=== PATIENT | male | born 1990 | race Caucasian/White ===

== ENCOUNTER 2021-10-10 19:17 | Emergency (ER) | payer BC, SELFPAY ==
[2021-10-10 19:30] VITALS: BP 131/76; PULSE 91; RESP 18; TEMP 36.9; O2SAT 98; BMI 39.7
--- NOTE | 2021-10-10 19:48 | EXP.UTC ---
Discharge Plan Disposition Patient Disposition: Home, Self-Care Condition: Good Prescriptions Prescriptions: New methylprednisolone [Medrol (Lorenzo)] 4 mg tablets,dose pack 4 mg PO DIRECTED 6 Days Qty: 6 0RF Rx Instructions: 4 mg orally ;Medrol dose taper lorenzo synylnxhoxvjvpt-ydnlqnvqr-TE [Bromfed DM] 2-30-10 mg/5 mL syrup 10 ml PO Q6H PRN (Reason: cold symptoms) Qty: 200 0RF doxycycline monohydrate 100 mg capsule 100 mg PO BID 10 Days Qty: 20 0RF No Action citalopram 20 mg tablet 10 mg PO DAILY buspirone 7.5 mg tablet 7.5 mg PO DAILY Referrals Follow up/Referrals: Provider,Referral, MD [Primary Care Provider] - See instructions Clinical Impressions Clinical Impression: Upper respiratory tract infection Instructions Patient Instructions: DI for Acute Bronchitis Discharge ED Provider: Judie Villegas [facility] [place] HPI General Stated complaint: sore throat,ELLIS,runny nose,waqas Mode of Arrival: Ambulatory Source of Information: Patient Limitations: No Limitations Time Seen by Provider: 10/10/21 19:39 Description of Symptoms (Recalled from Triage Doc. by RN): PATIENT C/O SINUS DRAINAGE AND SORE THROAT X 1 WEEK HEENT Symptoms (Recalled from RN notes): Yes Resp Symptoms (Recalled from RN notes): No Skin Symptoms (Recalled from RN notes): No MS Symptoms (Recalled from RN notes): No Functional Status (Recalled from RN notes): WNL History of Present Illness Provider Complaint: Pt states that for the last week and a half he has dealt with sinus drainage, cough and since yesterday a sore throat. He relates that he has not taken anything for his symptoms. He reports green sinus drainage and coughing up brownish tinged phlegm where he smokes. Related Data Home Medications Medication Instructions Recorded Confirmed buspirone 7.5 mg tablet 7.5 mg PO DAILY Anxiety 10/10/21 10/10/21 citalopram 20 mg tablet 10 mg PO DAILY Anxiety 10/10/21 10/10/21 Previous Rx's Medication Instructions Recorded uulmlhyoqrocvvl-tupcbsubsowajgx-ZB 10 ml PO Q6H PRN cold symptoms 10/10/21 2 mg-30 mg-10 mg/5 mL oral syrup #200 mL (Bromfed DM) doxycycline monohydrate 100 mg 100 mg PO BID 10 days #20 caps 10/10/21 capsule methylprednisolone 4 mg tablets in 4 mg PO DIRECTED 6 days #6 tabs 10/10/21 a dose pack (Medrol (Lorenzo)) Allergies Allergy/AdvReac Type Severity Reaction Status Date / Time Penicillins Allergy Verified 10/10/21 19:39 Worker's Comp Is this a Worker's Comp case?: No PFSH PFSH Medical History (Updated 10/10/21 @ 20:00 by Judie Villegas APRN) Anxiety Asthma Depression Surgical History (Updated 10/10/21 @ 19:38 by Sherlyn Murphy RN) History of hernia repair Social History (Updated 10/10/21 @ 19:38 by Sherlyn Murphy RN) Smoking Status: Current every day smoker alcohol intake: current current occupational status: other Travel in the last 8 weeks: None ROS Obtained: Yes All systems reviewed & no additional complaints except as documented Constitutional Constitutional: Reports system reviewed and no additional complaints, except as documented and Reports malaise ENT Ears, Nose, Mouth, and Throat: Reports nasal congestion, Reports nasal discharge, Reports post nasal drip, Reports sinus pressure and Reports sore throat Cardiovascular Cardiovascular: Reports system reviewed and no additional complaints, except as documented and Reports as per HPI Respiratory Respiratory: Reports cough and Reports cough with sputum production Gastrointestinal Gastrointestingal: Reports system reviewed and no additional complaints, except as documented Musculoskeletal Musculoskeletal: Reports system reviewed and no additional complaints, except as documented Integumentary/Breasts Skin/Breast: Reports system reviewed and no additional complaints, except as documented Endocrine Endocrine: Reports system reviewed and no additional complaints, except as documented P
[2021-10-10 20:02] VITALS: BP 131/76; PULSE 91; RESP 18; TEMP 36.9; O2SAT 98
== END 2021-10-10 20:05 | disposition home or self-care (01) ==
PROVIDERS: Emergency Provider Nurse Practitioner Family
DX: J06.9 Acute upper respiratory infection, unspecified (principal)
CPT/HCPCS: 99212; G0463

== ENCOUNTER 2021-12-22 11:13 | Emergency (ER) | payer BC, SELFPAY ==
[2021-12-22 11:19] VITALS: BP 158/98; PULSE 84; RESP 16; TEMP 37; O2SAT 98; BMI 37.3
[2021-12-22 11:50] VITALS: BP 0/0; PULSE 0; RESP 0; TEMP -17.7; TEMP 0
== END 2021-12-22 11:51 | disposition left against medical advice (07) ==
PROVIDERS: Emergency Provider Nurse Practitioner Family
DX: J06.9 Acute upper respiratory infection, unspecified (principal)
CPT/HCPCS: 99212; G0463

== ENCOUNTER 2023-04-27 13:22 | Observation (INO) | payer BC, SELFPAY ==
[2023-04-27 13:25] VITALS: BP 141/79; PULSE 71; RESP 22; TEMP 36.6; O2SAT 98; BMI 40.4
[2023-04-27] MEDS: METHOCARBAMOL 500MG TABLET 1500 MG PO (13:46)
[2023-04-27] MEDS: DEXAMETHASONE 4MG TABLET 10 MG PO (13:46)
[2023-04-27] MEDS: LIDOCAINE 5% TRANSDERMAL PATCH 1 EACH TP (13:46)
[2023-04-27] MEDS: KETOROLAC 30MG/ML VIAL 15 MG IM (13:50)
[2023-04-27 14:00] VITALS: BP 92/59; PULSE 62; O2SAT 96
--- NOTE | 2023-04-27 14:06 | HMH.EDGENADL ---
Discharge Plan Disposition Patient Disposition: Home, Self-Care Prescriptions Prescriptions: New prednisone 20 mg tablet 40 mg PO DAILY 5 Days Qty: 10 0RF methocarbamol 750 mg tablet 1,500 mg PO TID 5 Days Qty: 30 0RF lidocaine 5 % adhesive patch,medicated 1 patch topical DAILY Qty: 15 0RF Rx Instructions: leave on most painful area for up to 12 hrs No Action citalopram 20 mg tablet 10 mg PO DAILY buspirone 7.5 mg tablet 7.5 mg PO DAILY methylprednisolone [Medrol (Lorenzo)] 4 mg tablets,dose pack 4 mg PO DIRECTED 6 Days Qty: 6 0RF Rx Instructions: 4 mg orally ;Medrol dose taper lorenzo bbwnzjojsfqyuzg-hmzzkwwpq-NS [Bromfed DM] 2-30-10 mg/5 mL syrup 10 ml PO Q6H PRN (Reason: cold symptoms) Qty: 200 0RF doxycycline monohydrate 100 mg capsule 100 mg PO BID 10 Days Qty: 20 0RF Referrals Follow up/Referrals: Provider,MD Abdi [Referring] - See instructions Bereket Finch MD [Staff Physician] - See instructions Activity Restrictions/Add. Instructions Additional Instructions/Restrictions: Call your family doctor to establish care for this visit to the emergency department and schedule follow-up within 48 hours to ensure improvement. If you have any worsening of your condition or any other concerning signs or symptoms, return to the emergency department or your primary care doctor for further evaluation. Clinical Impressions Clinical Impression: Back pain with right-sided sciatica Discharge ED Provider: Sixto Diaz General Adult HPI General Chief complaint: PAIN Stated complaint: Lower back pain Time Seen by Provider: 04/27/23 13:23 Mode of Arrival: EMS Source of Information: Patient and EMS Limitations: Physical Limitations Description of Symptoms (Recalled from ER Triage Doc. by RN): Pt. arrived via EMS with complaints of right lower back pain that started Tuesday and has progressivly gotten worse. He rated it a 7/10 this morning but a 10/10 when he called the ambulance. He states he has no known injury and has had similar episodes of pain in the past. History of Present Illness HPI narrative: 32-year-old male with history of previous back injury due to sports when he was younger presenting with sciatic nerve pain on the right. Patient states that he gets sciatic nerve flareups a couple times a year which debilitate him and render him unable to walk secondary to pain. Patient states that this episode started 1 or 2 days ago and has gotten worse since that time. Yesterday, 04/25, was unable to stand from seated position, sit from standing position without significant discomfort. States that he has never followed up with spine surgeon, pain medicine, or any other back pain specialist. He went to [place] ER recently for similar symptoms and was given IV morphine and discharged without further medication or management. Denies bowel or bladder dysfunction, saddle anesthesia, lower extremity weakness, or any other concerns. Please note that above description of symptoms, in this electronic medical record under categorization of recalled from ER triage doctor by RN are reflective of an initial nursing assessment, however, is not reflective of my full history and physical exam that was personally taken and clarified. Consequentially, this preceding description of symptoms, which may include the patient's categorized chief complaint in the EMR, do not reflect my personal clinical impression, and the ultimate description of history of present illness and patient stated complaints should be deferred to this section of the note. Unless stated otherwise or congruent with this section of the note, additional signs, symptoms, or incongruence should be interpreted as inaccurate with my clinical impression. Related Data Home Medications Medication Instructions Recorded Confirmed buspirone 7.5 mg tablet 7.5 mg PO DAILY Anxiety 10/10/21 10/10/21 citalopram 20 mg tablet 10 mg PO DAILY Anxiety 10/10/21 10/10/21 Previous Rx's Medication Instructions Recorded ezqanszoauocywp-nfpvvnjzvgzdxcn-NZ 10 ml PO Q6H PRN cold symptoms 10/10/21 2 mg-30 mg-10 mg/5 mL oral syrup #200 mL (Bromfed DM) doxycycline monohydrate 100 mg 100 mg PO BID 10 days #20 caps 10/10/21 capsule methylprednisolone 4 mg tablets in 4 mg PO DIRECTED 6 days #6 tabs 10/10/21 a dose pack (Medrol (Lorenzo)) lidocaine 5 % topical patch 1 patch topical DAILY #15 ea 04/27/23 methocarbamol 750 mg tablet 1,500 mg (2 x 750 mg) PO TID 5 04/27/23 days #30 tabs prednisone 20 mg tablet 40 mg (2 x 20 mg) PO DAILY 5 days 04/27/23 #10 tabs Allergies Allergy/AdvReac Type Severity Reaction Status Date / Time Penicillins Allergy Verified 10/10/21 19:39 [facility] Disclaimer: The information contained in this section may have been updated after the patient was seen, as this information can be updated by other users. Medical History (Updated 04/27/23 @ 14:56 by Sixto Diaz MD) Depression Anxiety Asthma Surgical History (Updated 10/10/21 @ 19:38 by Sherlyn Murphy RN) History of hernia repair Social History (Updated 10/10/21 @ 20:00 by Judie Villegas APRN) Smoking Status: Current every day smoker alcohol intake: current current occupational status: other Travel in the last 8 weeks: None ROS Obtained: Yes All systems reviewed & no additional complaints except as documented Physical Exam General General appearance: alert, in no apparent distress and other (Laying with right leg flexed at hip and knee) Head Head exam: atraumatic and normocephalic Eye Eye exam: Present normal appearance, PERRL and EOMI ENT ENT exam: Present mucous membranes moist Neck Neck exam: Present normal inspection, full ROM and trachea midline Respiratory Respiratory exam: Present normal lung sounds bilaterally; Absent respiratory distress, wheezes, stridor, accessory muscle use or prolonged expiratory phase Cardiovascular Cardiovascular exam: Present regular rate and normal rhythm Abdominal Exam Abdominal exam: Present soft; Absent distention, tenderness, guarding, rebound or rigidity Extremities Exam Extremities exam: Absent edema Back Exam Back exam: Present sciatic notch tenderness (R); Absent sciatic notch tenderness (L) Neurological Exam Neurological exam: Present alert, oriented X3, CN II-XII intact and normal gait; Absent motor sensory deficit Skin Skin exam: Present warm and dry; Absent diaphoresis or erythema Medical Decision Making Medical Records Medical records reviewed: Yes I reviewed the patient's medical records. Berny Inquiry Pt receiving controlled substance: No Berny was queried for this patient: No Vital Signs: 04/27/23 13:25 04/27/23 14:00 Temperature 97.9 F Temperature Source Oral Pulse Rate 62 Pulse Rate [Right Brachial] 71 Respiratory Rate 22 Blood Pressure 92/59 L Blood Pressure [Right Arm] 141/79 H Blood Pressure Mean [Right Arm] 99 Blood Pressure Source [Right Arm] Automatic Cuff Blood Pressure Position [Right Arm] Supine 02 Sat by Pulse Oximetry 98 96 Oxygen Delivery Method Room Air Orders (Tests/Meds): ED MEDICATIONS Discontinued Medications Generic Name Dose Route Start Last Admin Trade Name Jesse PRN Reason Stop Dose Admin Dexamethasone 10 mg 04/27/23 13:28 04/27/23 13:46 Dexamethasone 4mg Tablet PO 04/27/23 13:29 10 mg ONCE ONE Administration Ketorolac Tromethamine 15 mg 04/27/23 13:28 04/27/23 13:49 Ketorolac 30mg/Ml Vial IV 04/27/23 13:29 Not Given ONCE ONE Ketorolac Tromethamine 15 mg 04/27/23 13:48 04/27/23 13:50 Ketorolac 30mg/Ml Vial IM 04/27/23 13:49 15 mg ONCE ONE Administration Lidocaine 1 each 04/27/23 13:28 04/27/23 13:46 Lidocaine 5% Transdermal Patch TP 04/27/23 13:29 1 each ONCE ONE Administration Methocarbamol 1,500 mg 04/27/23 13:28 04/27/23 13:46 Methocarbamol 500mg Tablet PO 04/27/23 13:29 1,500 mg ONCE ONE Administration Medical Decision Narrative: 32-year-old male with history of previous back injury due to sports when he was younger presenting with sciatic nerve pain on the right. Patient states that he gets sciatic nerve flareups a couple times a year which debilitate him and render him unable to walk secondary to pain. Patient states that this episode started 1 or 2 days ago and has gotten worse since that time. Yesterday, 04/25, was unable to stand from seated position, sit from standing position without significant discomfort. States that he has never followed up with spine surgeon, pain medicine, or any other back pain specialist. He went to [place] ER recently for similar symptoms and was given IV morphine and discharged without further medication or management. Denies bowel or bladder dysfunction, saddle anesthesia, lower extremity weakness, or any other concerns. It should be noted that patient has chronic back pain with numerous acute flares per year and is not following with a specialist, which is likely complicating care. History was obtained via conversation with patient and EMS. On arrival, patient hemodynamically stable, alert, oriented x4, appropriate, GCS 15, moving all extremities spontaneously, pupils equal and reactive to light. Full physical exam performed and significant for neurovascularly intact and symmetric, patient is laying on the stretcher flex at the hip and knee. Most tenderness is primarily overlying his right sciatic notch. No overlying erythema or outward signs of abnormality. Differential includes radiculopathy, neuropathy, disc herniation, osteoarthritis, inflammatory versus autoimmune, among others. Patient was given IM Toradol 15 mg, 10 mg p.o. Decadron, 1500 mg p.o. Robaxin and lidocaine patch for symptomatic management and correction of underlying abnormalities. Patient was placed in observation beginning at 1:30 PM in order to give patient medications and allow time for them to take effect to give patient relief. And determine need for admission versus home-going. The patient was provided serial exams and monitoring while awaiting results. On reevaluation, patient feeling much better. At this time, I feel patient is appropriate for discharge. Total observation time 1.5 hours. Because patient at baseline without signs or symptoms of clinical decompensation, deemed appropriate for discharge. Results were relayed to patient who voiced understanding and were agreeable to outpatient management and follow up. I discussed my clinical impression with patient and answered all questions. At this time, the evidence for any other entities in the differential is insufficient to warrant any further testing or ED observation. This was explained as well. Advisory was given that persistent or worsening symptoms require further evaluation. I confirmed the understanding of this discussion. Critical Care Critical Care Time Critical Care Time: No
--- NOTE | 2023-04-27 14:13 | PC.NURSE ---
Rounded on pt. Pain now a 5/10.
[2023-04-27] MEDS: diazePAM 5MG TABLET 5 MG PO (15:17)
--- NOTE | 2023-04-27 16:14 | CT_ITS ---
PROCEDURE INFORMATION: Exam: CT Lumbar Spine Without Contrast Exam date and time: 04/27/2023 4:27 PM Age: 32 years old Clinical indication: Low back pain; Additional info: Pain, L sided sciatica, unable to ambulate TECHNIQUE: Imaging protocol: Computed tomography of the lumbar spine without contrast. Radiation optimization: All CT scans at this facility use at least one of these dose optimization techniques: automated exposure control; mA and/or kV adjustment per patient size (includes targeted exams where dose is matched to clinical indication); or iterative reconstruction. COMPARISON: CT THORACIC SPINE WO CON 04/27/2023 4:25 PM FINDINGS: Bones/joints: No acute fracture or subluxation. Possible disc herniation at L4-L5 for which MRI would be suggested. Soft tissues: Unremarkable. IMPRESSION: Possible disc herniation at L4-L5 for which MRI would be suggested.
--- NOTE | 2023-04-27 16:14 | CT_ITS ---
PROCEDURE INFORMATION: Exam: CT Thoracic Spine Without Contrast Exam date and time: 04/27/2023 4:25 PM Age: 32 years old Clinical indication: Pain in thoracic spine; Additional info: Pain, L sided sciatica, unable to ambulate TECHNIQUE: Imaging protocol: Computed tomography of the thoracic spine without contrast. Radiation optimization: All CT scans at this facility use at least one of these dose optimization techniques: automated exposure control; mA and/or kV adjustment per patient size (includes targeted exams where dose is matched to clinical indication); or iterative reconstruction. COMPARISON: No relevant prior studies available. FINDINGS: Bones/joints: Slight exaggeration of the thoracic curvature. No acute fracture or subluxation. Soft tissues: Unremarkable. Lymph nodes: There are calcified mediastinal lymph nodes likely reflecting prior granulomatous disease. Lungs: Calcified granuloma in the left lower lobe. Spleen: There are multiple calcifications in the spleen most likely reflects small granulomas. IMPRESSION: 1. No acute pathology of the thoracic spine. 2. If clinical concern persists, MRI would be suggested.
--- NOTE | 2023-04-27 16:14 | CT_ITS ---
PROCEDURE INFORMATION: Exam: CT Pelvis Without Contrast; Skeletal Exam date and time: 04/27/2023 4:31 PM Age: 32 years old Clinical indication: Pain; Other: Lbp; Additional info: Pain, L sided sciatica, unable to ambulate TECHNIQUE: Imaging protocol: Computed tomography of the pelvis without contrast. Exam focused on the skeleton. Radiation optimization: All CT scans at this facility use at least one of these dose optimization techniques: automated exposure control; mA and/or kV adjustment per patient size (includes targeted exams where dose is matched to clinical indication); or iterative reconstruction. COMPARISON: CT LUMBAR SPINE WO CON 04/27/2023 4:27 PM FINDINGS: Bones/joints: Unremarkable. No acute fracture. No dislocation. Soft tissues: Injection site in the right buttock with subcutaneous air. IMPRESSION: No acute abnormality of the bony pelvis.
--- NOTE | 2023-04-27 16:25 | PC.NURSE ---
pt gone to ct
[2023-04-27] MEDS: HYDROMORPHONE 2MG/ML SYRINGE 1 MG IM (16:36)
--- NOTE | 2023-04-27 17:24 | PC.NURSE ---
Rounded on patient , no needs voiced at this time.
--- NOTE | 2023-04-27 17:32 | PC.NURSE ---
arrived by stretcher from ED
[2023-04-27 17:35] VITALS: BP 124/78; PULSE 78; RESP 20; TEMP 36.7; O2SAT 95
[2023-04-27 17:52] VITALS: BP 126/72; PULSE 58; RESP 24; TEMP 36.6; O2SAT 98; BMI 40.4
--- NOTE | 2023-04-27 19:35 | P.HP_ITS ---
History of Present Illness *Admission Date: 04/27/23 *Reason for visit:: Intractable back pain *History of present illness: Mr. Rae is a 32-year-old male with obesity and history of sciatica. Presented to the ER with complaint of worsening right lower back pain that radiates into his right thigh and groin. Pain began Tuesday and has progressively gotten worse. Progressed to the point it is a 10 out of 10 today. Unable to get up without severe pain. Has been having a difficult time going to the bathroom and providing self-care. Called ambulance for evaluation and to come to the ER. On arrival to the ER, states he has had episodes of sciatica in the past and gets flares a few times a year. This is one of his more debilitating episodes and he has been unable to walk due to the pain. Denies chest pain, nausea, vomiting, shortness of breath. No bowel or bladder incontinence. Denies any saddle anesthesia. States the pain in his right leg is worse when he lifts his left leg. Is unable to move due to the pain and just wants to lay flat. In the ER, treated with Toradol, steroids, muscle relaxers with no improvement in pain. Due to the debilitating nature of his pain, medicine was consulted for admission and further management. On arrival to the floor, patient was evaluated. Appears comfortable at this time but any movement produces pain down his leg. Alert and oriented x 4. Stable on room air. Afebrile. [facility] Disclaimer: The information contained in this section may have been updated after the patient was seen, as this information can be updated by other users. Medical History (Updated 04/27/23 @ 19:37 by Minor Funes MD) Depression Anxiety Asthma Surgical History History of hernia repair Family History Family history of cancer Social History Smoking Status: Current every day smoker alcohol intake: current current occupational status: employed and other Travel in the last 8 weeks: None Review of Systems Review of Systems Review of systems (narrative): 14 point review of systems performed, pertinent positives and negatives as per HPI Meds Home Medications and Allergies Home Medications Medication Instructions Recorded Confirmed Type buspirone 10 mg tablet 10 mg PO BID 04/28/23 04/28/23 History citalopram 10 mg tablet 10 mg PO DAILY 04/28/23 04/28/23 History New Prescriptions to Start Prescriptions: Allergies Allergy/AdvReac Type Severity Reaction Status Date / Time Penicillins Allergy Verified 10/10/21 19:39 Exam Data for Last 24 hours Vital signs and Labs for Last 24 Hours: Temp Pulse Resp BP Pulse Ox O2 Del Method 97.9 F 58 L 24 126/72 98 Room Air 04/27/23 17:52 04/27/23 17:52 04/27/23 17:52 04/27/23 17:52 04/27/23 17:52 04/27/23 18:41 I & O for Last 24 hours: Intake & Output 04/24/23 04/25/23 04/26/23 04/27/23 23:59 23:59 23:59 23:59 Intake Total 0 / 0 Balance 0 / 0 Weight 131.542 kg Constitutional Constitutional: no acute distress, morbidly obese and cooperative *Routine HEENT Exam Head: Present normocephalic Eye: Present EOMI and PERRL ENT: Present mucous membranes moist *Routine Neck Exam Neck: Present supple; Absent lymphadenopathy *Routine Respiratory Exam Respiratory: Present CTA bilaterally; Absent rhonchi, wheezes or crackles *Routine Cardiovascular Exam Cardiovascular: Present RRR *Routine Abdominal Exam Abdominal: Present soft and normoactive bowel sounds; Absent tenderness *Routine Rectal Exam Rectal:: deferred *Routine Genitalia Exam Genitalia:: deferred *Routine Extremities Exam Extremities: Absent cyanosis, clubbing or edema Routine Back/Spine/Pelvis Exam Comments: Positive pain in right lower back and down right leg into the thigh with left leg raise. *Routine Skin Exam Skin: Present intact and warm; Absent rash *Routine Neurological Exam Neurological: Present alert, oriented X3, normal reflexes and moving all extremities; Absent altered mental status Assessment and Plan *Assessment and plan (1) Intractable back pain: Status: Acute Category: Medical Code(s): M54.9 - Dorsalgia, unspecified (2) Herniated lumbar intervertebral disc: Status: Acute Category: Medical Code(s): M51.26 - Other intervertebral disc displacement, lumbar region (3) Back pain with right-sided sciatica: Status: Acute Category: Medical Code(s): M54.31 - Sciatica, right side (4) Class 3 obesity: Status: Acute Category: Medical Code(s): E66.01 - Morbid (severe) obesity due to excess calories (5) Depression: Status: Acute Category: Medical Code(s): F32.A - Depression, unspecified Plan 32-year-old male with history of sciatica and obesity. Presented with intractable back pain. CT obtained in the ER showing concern for disc herniation. Attempts to treat pain in the ER were unsuccessful. Discussed case with ER physician, request admission for pain control and further evaluation by therapy and pain management. Medicine agreed to admit. Patient comfortable as long as he does not move. Will have occasional spasms on evaluation with pain shooting down his right leg. Will observe overnight and develop plan with subspecialist in the morning for continued outpatient care. Problems addressed as follows: Intractable back pain Right-sided sciatic Lumbar disc herniation -Personally reviewed CT of L-spine. Questionable herniation at L4/5. Would benefit from MRI. Will recommend MRI as an outpatient. -Has positive leg raise on exam. -Continue dexamethasone 6 mg daily, received 10 mg in the ER, complete 5 days total -PT, OT, pain management consulted. Will see patient in the morning -Flexeril 3 times a day -Pain control with oxycodone 5 mg as needed every 6 hours and Dilaudid 10 mg p.o. as he tolerated IV in the ER and has no IV at this time Depression, continue home citalopram 10 mg daily and BuSpar 10 mg twice daily Morbid obesity complicates all aspects of his care Full code Holding on anticoagulation and PPI Regular diet
[2023-04-27] MEDS: KETOROLAC 10MG TABLET 10 MG PO (19:43)
[2023-04-27 19:58] VITALS: BP 128/71; PULSE 65; RESP 18; TEMP 36.7; O2SAT 97
[2023-04-27 20:00] VITALS: O2SAT 97
[2023-04-27] MEDS: OXYCODONE 5MG W/APAP 325MG TABLET 1 EACH PO (21:07)
[2023-04-27] MEDS: CYCLOBENZAPRINE 10MG TABLET 5 MG PO (21:08)
[2023-04-28 04:00] VITALS: BP 99/50; PULSE 55; RESP 17; TEMP 37.1; O2SAT 96; BMI 40.6
[2023-04-28] MEDS: KETOROLAC 10MG TABLET 10 MG PO ×2 (04:18→10:44)
[2023-04-28] MEDS: CYCLOBENZAPRINE 10MG TABLET 5 MG PO (04:19)
--- NOTE | 2023-04-28 04:50 | PC.NURSE ---
PATIENT CONTINUES TO HAVE PAIN BUT NOT INTENSE. STATES PAIN IS ALMOST UNBEARABLE WITH MOVEMENT/ACTIVITY. REPORTS NO PAIN IF NOT MOVING. HAS NOT BEEN UO OUT OF BED THIS SHIFT. IS ABLE TO TURN SELF SLOWLY.
[2023-04-28 06:26] LABS: Basophils # 0.1 K/mm3 (0-0.2); Basophils % 0.6 % (0.1-2.0); Eosinophils % 0.1 % (0.1-12.0); Hematocrit 46.3 % (42.0-52.0); Hemoglobin 15.5 g/dL (14.1-18.0); Lymphocytes # 1.4 K/mm3 (0.7-4.5); Lymphocytes % 12.7 % (10-50); Mean Corpuscular HGB Conc 33.6 g/dL (31.8-35.4); Mean Corpuscular Volume 98.3 fl (80-94); Mean Platelet Volume 8.1 fl (7.4-10.4); Monocytes # 0.4 K/mm3 (0.1-1.0); Monocytes % 3.8 % (1.7-9.3); Neutrophils # 9.2 K/mm3 (1.8-7.8); Neutrophils % 82.7 % (37.0-80.0); Platelet Count 282 K/mm3 (142-424); Red Blood Count 4.71 M/mm3 (4.60-6.20); Red Cell Distribution Width 13.1 % (11.5-17.5); White Blood Count 11.1 K/mm3 (4.8-10.8)
[2023-04-28 06:27] LABS: INR 1.01 (0.9-1.1); Prothrombin Time 10.9 seconds (10.1-12.5)
[2023-04-28 06:35] LABS: Alanine Aminotransferase 26 U/L (12-78); Albumin Level 4.5 g/dl (3.5-5.0); Albumin/Globulin Ratio 1.6 (1.1-1.8); Alkaline Phosphatase 65 U/L (38-126); Anion Gap 11.7 mEq/L (5-15); Aspartate Amino Transferase 26 U/L (17-59); Bilirubin,Total 0.6 mg/dl (0.2-1.3); Blood Urea Nitrogen 21 mg/dl (9-20); Calcium 9.3 mg/dl (8.4-10.2); Carbon Dioxide 24 mmol/L (22.0-30.0); Chloride 110 mmol/L (98-107); Creatinine Clearance Estimated 119 mL/min (50-200); Estimated Glomerular Filt Rate 97 ml/min (>60); GFR (African American) 117 ML/MIN (>60); Globulin 2.9 g/dL (1.3-3.2); Glucose 128 mg/dl (74-100); Magnesium 2.3 mg/dl (1.6-2.3); Potassium 3.7 mmoL/L (3.5-5.1); Sodium 142 mmol/L (136-145); Total Protein,Serum 7.4 g/dl (6.3-8.2)
--- NOTE | 2023-04-28 07:17 | HMH.PHAINT1 ---
Pharmacy Intervention Comments: Home medication list verified via outside pharmacy
[2023-04-28] MEDS: OXYCODONE 5MG W/APAP 325MG TABLET 1 EACH PO ×2 (07:31→15:25)
[2023-04-28 08:00] VITALS: BP 123/70; PULSE 55; RESP 19; TEMP 36.9; O2SAT 99
--- NOTE | 2023-04-28 08:09 | P.DS_ITS ---
General Admission date:: 04/27/23 Discharge date: 04/28/23 HPI HPI HPI: Mr. Rae is a 32-year-old male with obesity and history of sciatica. Presented to the ER with complaint of worsening right lower back pain that radiates into his right thigh and groin. Pain began Tuesday and has progressively gotten worse. Progressed to the point it is a 10 out of 10 today. Unable to get up without severe pain. Has been having a difficult time going to the bathroom and providing self-care. Called ambulance for evaluation and to come to the ER. On arrival to the ER, states he has had episodes of sciatica in the past and gets flares a few times a year. This is one of his more debilitating episodes and he has been unable to walk due to the pain. Denies chest pain, nausea, vomiting, shortness of breath. No bowel or bladder incontinence. Denies any saddle anesthesia. States the pain in his right leg is worse when he lifts his left leg. Is unable to move due to the pain and just wants to lay flat. In the ER, treated with Toradol, steroids, muscle relaxers with no improvement in pain. Due to the debilitating nature of his pain, medicine was consulted for admission and further management. On arrival to the floor, patient was evaluated. Appears comfortable at this time but any movement produces pain down his leg. Alert and oriented x 4. Stable on room air. Afebrile. Hospital Course Hospital Course Hospital Course: 32-year-old male with history of sciatica and obesity. Presented with intra ctable back pain. CT obtained in the ER showing concern for disc herniation. Attempts to treat pain in the ER were unsuccessful. Discussed case with ER physician, request admission for pain control and further evaluation by therapy and pain management. Medicine agreed to admit. Patient comfortable as long as he does not move. Will have occasional spasms on evaluation with pain shooting down his right leg. Observed overnight. Pain doing somewhat better. Able to ambulate to and from the bathroom and get up from bed independently. Evaluated by therapy and pain management. Outpatient plan in place. Stable for discharge home. Problems addressed as follows: Intractable back pain Right-sided sciatic Lumbar disc herniation -Personally reviewed CT of L-spine. Questionable herniation at L4/5. Would benefit from MRI as an outpatient. Pain management and PT were consulted. Pain management evaluated the patient. Is having significant pain from SI joint as well as sciatica. Positive exam findings for SI joint dysfunction. Pain management will follow-up with the patient in the very near future for SI joint injection under fluoroscopy. They will also proceed with ordering MRI without contrast of the L-spine as an outpatient. Ordered compound cream and a 1 month supply of methocarbamol 3 times a day. Close follow-up as scheduled. Patient is mobile this morning. Will continue Toradol and oxycodone. Stable for discharge home to continue to convalesce and have further treatment as an outpatient. Further instructions from pain management as follows: Patient has been i nstructed to contact the clinic with any concerns before the next appointment. Depression, continue home citalopram 10 mg daily and BuSpar 10 mg twice daily Morbid obesity complicates all aspects of his care Total time spent on discharge 32 minutes in counseling, documentation, chart review, and direct care with patient. Exam Data for Last 24 hours Vital signs and Labs for Last 24 Hours: Temp Pulse Resp BP Pulse Ox O2 Del Method 98.8 F 55 L 17 99/50 L 96 Room Air 04/28/23 04:00 04/28/23 04:00 04/28/23 04:00 04/28/23 04:00 04/28/23 04:00 04/28/23 06:31 Laboratory Results - last 24 hr 04/28/23 05:48: WBC 11.1 H, RBC 4.71, Hgb 15.5, Hct 46.3, MCV 98.3 H, MCH 33.0 H , MCHC 33.6, RDW 13.1, Plt Count 282, MPV 8.1, Neut % (Auto) 82.7 H, Lymph % (Auto) 12.7, Dickinson % (Auto) 3.8, Eos % (Auto) 0.1, Baso % (Auto) 0.6, Neut # (Auto) 9.2 H, Lymph # (Auto) 1.4, Dickinson # (Auto) 0.4, Eos # (Auto) 0.0, Baso # (Auto) 0.1, PT 10.9, INR 1.01, Sodium 142, Potassium 3.7, Chloride 110 H, Carbon Dioxide 24, Anion Gap 11.7, BUN 21 H, Creatinine 0.90, Estimated Creat Clear 119, Estimated GFR 97, Est GFR ( Amer) 117, Glucose 128 H, Calcium 9.3, Magnesium 2.3, Total Bilirubin 0.6, AST 26, ALT 26, Alkaline Phosphatase 65, Total Protein 7.4, Albumin 4.5, Globulin 2.9, Albumin/Globulin Ratio 1.6 I & O for Last 24 hours: Intake & Output 04/25/23 04/26/23 04/27/23 04/28/23 23:59 23:59 23:59 23:59 Intake Total 0 / 400 400 / 400 Output Total 600 / 600 Balance -600 / -200 400 / 400 Weight 131.542 kg 131.542 kg Constitutional Constitutional: no acute distress, morbidly obese and cooperative *Routine HEENT Exam Head: Present normocephalic Eye: Present EOMI and PERRL ENT: Present mucous membranes moist *Routine Neck Exam Neck: Present supple; Absent lymphadenopathy *Routine Respiratory Exam Respiratory: Present CTA bilaterally; Absent rhonchi, wheezes or crackles *Routine Cardiovascular Exam Cardiovascular: Present RRR *Routine Abdominal Exam Abdominal: Present soft and normoactive bowel sounds; Absent tenderness *Routine Rectal Exam Patient deferred: visual exam *Routine Exam Patient deferred: penile exam *Routine Extremities Exam Extremities: Absent cyanosis, clubbing or edema Comments: Positive Jose R on right side, pain in back with sciatic pain down right leg with leg raise of left leg. *Routine Skin Exam Skin: Present intact and warm; Absent rash *Routine Neurological Exam Neurological: Present alert, oriented X3 and moving all extremities; Absent altered mental status Results Data Completed and Pending Labs on day of discharge: Labs from last 24 hours 04/28/23 05:48 WBC 11.1 H RBC 4.71 Hgb 15.5 Hct 46.3 MCV 98.3 H MCH 33.0 H MCHC 33.6 RDW 13.1 Plt Count 282 MPV 8.1 Neut % (Auto) 82.7 H Lymph % (Auto) 12.7 Dickinson % (Auto) 3.8 Eos % (Auto) 0.1 Baso % (Auto) 0.6 Neut # (Auto) 9.2 H Lymph # (Auto) 1.4 Dickinson # (Auto) 0.4 Eos # (Auto) 0.0 Baso # (Auto) 0.1 PT 10.9 INR 1.01 Sodium 142 Potassium 3.7 Chloride 110 H Carbon Dioxide 24 Anion Gap 11.7 BUN 21 H Creatinine 0.90 Estimated Creat Clear 119 Estimated GFR 97 Est GFR ( Amer) 117 Glucose 128 H Calcium 9.3 Magnesium 2.3 Total Bilirubin 0.6 AST 26 ALT 26 Alkaline Phosphatase 65 Total Protein 7.4 Albumin 4.5 Globulin 2.9 Albumin/Globulin Ratio 1.6 DS: Diagnosis Discharge Diagnosis (1) Intractable back pain: Status: Acute Code(s): M54.9 - Dorsalgia, unspecified (2) Herniated lumbar intervertebral disc: Status: Acute Code(s): M51.26 - Other intervertebral disc displacement, lumbar region (3) Back pain with right-sided sciatica: Status: Acute Code(s): M54.31 - Sciatica, right side (4) Class 3 obesity: Status: Acute Code(s): E66.01 - Morbid (severe) obesity due to excess calories (5) Depression: Status: Acute Code(s): F32.A - Depression, unspecified Meds Home Medications and Allergies Home Medications Medication Instructions Recorded Confirmed Type buspirone 10 mg tablet 10 mg PO BID 04/28/23 04/28/23 History citalopram 10 mg tablet 10 mg PO DAILY 04/28/23 04/28/23 History ketorolac 10 mg tablet 10 mg PO Q6HP PRN moderate pain 04/28/23 Rx (scale score 5-6) 4 days #16 tabs methocarbamol 750 mg tablet 750 mg PO TID #90 tabs 04/28/23 Rx oxycodone-acetaminophen 5 mg-325 1 tab PO Q6HP PRN Severe Pain 04/28/23 Rx mg tablet (7-10) 2 days #8 tabs New Prescriptions to Start Prescriptions: rishiac Minor Funes methocarbamol Lois Price oxycodone-acetaminophen Minor Funes Allergies Allergy/AdvReac Type Severity Reaction Status Date / Time Penicillins Allergy Verified 10/10/21 19:39 Discharge Plan Disposition Patient Disposition: Home, Self-Care Condition: Good Follow up Plan Follow up with: Bereket Finch MD [Staff Physician] - 05/03/23 10:00 am ([place] at the [facility] [employer], by the [employer]. ) Che Rodriguez APRN [Primary Care Provider] - Enter time for follow up (Please call Tuesday morning to make an appt. Per Che Rodriguez. ) Prescriptions/Medication Reconciliation: New methocarbamol 750 mg tablet 750 mg PO TID Qty: 90 0RF ketorolac 10 mg Tablet 10 mg PO Q6HP PRN (Reason: moderate pain (scale score 5-6)) 4 Days Qty: 16 0RF oxycodone-acetaminophen 5-325 mg Tablet 1 tab PO Q6HP PRN (Reason: Severe Pain (7-10)) 2 Days Qty: 8 0RF Continued citalopram 10 mg tablet 10 mg PO DAILY Patient Comments: TAKE 1 TABLET BY MOUTH EVERY DAY IN THE MORNING buspirone 10 mg tablet 10 mg PO BID Patient Comments: TAKE 1 TABLET BY MOUTH TWICE DAILY Problem Reconciliation Problems Reviewed?: Yes Patient Discharge Instructions ACTIVITY: Continue current activity and Ambulate as tolerated DIET: continue same diet Patient Instructions: Non-Medication Pain Relief, Managing Chronic Low Back Pain, Low Back Pain (Alternative Therapy) Providers Primary Care Provider: Che Rodriguez Admit Provider: Minor Funes Attending Provider: Mionr Funes
[2023-04-28] MEDS: DEXAMETHASONE 4MG TABLET 6 MG PO (09:27)
[2023-04-28] MEDS: BUSPIRONE HCL 10 MG TABLET PO (09:29)
[2023-04-28] MEDS: CITALOPRAM 10MG TABLET 10 MG PO (09:30)
--- NOTE | 2023-04-28 09:57 | HMH.OTEV ---
OT Inpatient Evaluation Rehab OT IP Evaluation Start: 04/27/23 17:47 Freq: ONCE Status: Active Protocol: Document 04/28/23 09:52 [facility] (Rec: 04/28/23 09:57 [facility] [id number]) Rehab OT IP Assessment Subjective History Pt oriented x 3 on arrival. Pt agreeable to engage in therapy evaluation. Pt admitted on 04/27/23 due to Intractable back pain. History and Physical pain: Mr. Rae is a 32-year-old male with obesity and history of sciatica. Presented to the ER with complaint of worsening right lower back pain that radiates into his right thigh and groin. Pain began Tuesday and has progressively gotten worse. Progressed to the point it is a 10 out of 10 today. Unable to get up without severe pain. Has been having a difficult time going to the bathroom and providing self-care. Called ambulance for evaluation and to come to the ER. On arrival to the ER, states he has had episodes of sciatica in the past and gets flares a few times a year. This is one of his more debilitating episodes and he has been unable to walk due to the pain. Denies chest pain, nausea, vomiting, shortness of breath. No bowel or bladder incontinence. Denies any saddle anesthesia. States the pain in his right leg is worse when he lifts his left leg. Is unable to move due to the pain and just wants to lay flat. In the ER, treated with Toradol, steroids , muscle relaxers with no improvement in pain. Due to the debilitating nature of his pain, medicine was consulted for admission and further management. Subjective It's when I stand it hurts. Prior to being in the hospital , pt lived at home alone. Pt was independent with all ADLs and IADLs. Pt did not require any type of AE during daily activities or functional mobility. Pt also worked fulltime and took care of his kids. Objective Patient Orientation Person,Place,Birthday Right Upper Extremity Gross ROM WFL Left Upper Extremity Gross ROM WFL Bed Mobility bed mobility-scooting,bed mobility - supine/sit Assist Level Contact Guard/Hand Hold Transfer Training Sit/Stand Transfer Assist Level Minimal x 1 (25% assist) Rehab OT IP prob,goals,plan Problems Date of Evaluation: 04/28/23 OT IP Problems Bed Mobility,Transfers,Balance ,Self care,Safety Rehab Potential Rehab Potential Good Equipment Needs Assistive Devices Rolling / Wheeled Walker Plan OT intervention Plan Bed Mobility,Transfers,Balance ,Self care,Safety,Therapeutic Exercise OT Plan Frequency Daily Duration LOS Discharge Goals Bed Mobility Ability Standby Assistance Sit to Stand Chair Transfer Ability Contact Guard/Hand Hold Chair Transfer Ability Contact Guard/Hand Hold Chair Transfer Technique Sit to/from Ambulatory Chair Transfer Assistive Devices Rolling Walker Feeding Ability Assist with Tray Set Up Lower Body Dressing Ability Minimal Assistance Upper Body Dressing Ability Standby Assistance Bathing Ability Minimal Assistance Performing Toilet Hygiene Ability Minimal Assistance Overall Commode/Toilet Transfer Ability Standby Assistance,Contact Guard Commode/Toilet Transfer Technique Sit to/from Ambulatory Commode/Toilet Transfer Assistive Raised Toilet Seat,Grab Bars Devices Decrease in Endurance No Discharge Plan OT Discharge Plan Pt will continue to be seen for OT services while at [facility]. Pt can return home with family assistance once he is medically stable per physician . Therapist recommends outpatient PT evaluation for his lower back. Eval Complexity Eval Charge Codes 78228 - Moderate Complexity PHYSICIAN CERTIFICATION: I certify the specified therapy services for Saurabh Rae are required, authorized, and reviewed every 30 days.
--- NOTE | 2023-04-28 12:33 | HMH.PTEV ---
Physical Therapy Evaluation Rehab PT IP Evaluation Start: 04/27/23 17:47 Freq: ONCE Status: Active Protocol: Document 04/28/23 12:03 [facility] (Rec: 04/28/23 12:33 [facility] [id number]) Subjective/History History History Patient is a 32 yom that presents to [facility] with intractable pain in the low back that presents as spasming . The pain a week ago and has progressed to a 10/10 pain. The patient's PMH is signficant for Depression Anxiety Asthma. Subjective Subjective Patient is agreeable to PT and oriented x4. Reports that he lives at home with his mother who is able to help. Reports that the pain is okay until it starts spasming, which it then becomes unbearable. New diagnosis of cancer in past 12 No months? Rehab PT IP Eval Objective Appearance Patient Behavior Appropriate,Cooperative, Patient Baseline Patient Orientation Person,Place,Time,Birthday Difficulty following instructions none Speech Pattern Clear,Appropriate,Patient Baseline Ambulation Patient Able to Ambulate Yes Ambulation Observation IP General Gait Pattern Observation Antalgic Gait,Shuffling Step Ambulation Distance (feet) 10 Ambulation Assistive Device None Ambulation Ability Minimal x 2 (25% assist) Balance Ability to Arise Able, uses arms to help Sitting Balance Steady, safe Standing Balance Steady, wide stance Dynamic Sitting Balance Ability Good Dynamic Standing Balance Ability Good Transfers Bed Transfer Ability Minimal x 2 (25% assist) Sit to Stand Chair Transfer Ability Minimal x 2 (25% assist) Rehab PT IP prob,goals,plan Problems Date of Evaluation: 04/28/23 PT IP Problems Bed Mobility,Transfers,Gait, Balance,Self care,Safety Rehab Potential Rehab Potential Good Plan PT Intervention Plan Bed Mobility,Transfers,Gait, Balance,Self care,Safety, Therapeutic Exercise Discharge Goals Bed Transfer Ability Supervision/Stand by Sit to Stand Chair Transfer Ability Supervision/Stand by Ambulation Assistive Device None Ambulation Distance (feet) 50 Discharge Plan PT Discharge Plan Patient presents for initial eval. Skilled PT is indicated to promote a return to his prior level of function and to prevent injuries. The patient may be most appropriate for discharge to home when deeemed medically stable. Eval Complexity Eval Charge Codes 95471 - High Complexity PHYSICIAN CERTIFICATION: I certify the specified therapy services for Saurabh Rae are required, authorized, and reviewed every 30 days.
--- NOTE | 2023-04-28 12:48 | A.OFFVIS_ITS ---
[facility] Pain Management SOAP Note Subjective:: Patient is a pleasant 32-year-old male who presents today as a consult from the [facility] for low back pain. Today he rates his pain a 9 out of 10. Patient states his pain is all at his low back with radiating symptoms into his right hip and right groin. Patient does describe this as a constant achy sensation when he is not moving however when he gets to sit up or stand it will go into a 9/10 sharp pain with spasms and pressure. Patient states that this did start on Tuesday unrelated to any specific trauma or injury. He does state that he does have a history of this pain and that it will flareup from time to time. Patient states that this has been going on for years and he thinks it might have something to do with the years of playing football when he was younger and lifting with possible inappropriate techniques. Patient has tried [id number] Tylenol and ibuprofen along with heat and ice and Aspercreme with minimal relief. Patient does state typically he will take muscle relaxers and rest and over time it does seem to get better. Patient states when he presented to the ER on this visit he had multiple things including Toradol, steroids, muscle relaxers, lidocaine patches and Dilaudid with no additional relief. He does state that this pain interferes with his ability perform activities of daily living such as cooking and cleaning or even simple ambulation. Patient denies ever having any injection history or back surgery. Patient did have a CT while here at the hospital that did have possible disc herniation mentioned at L4-L5. His Berny has been reviewed and is appropriate. Review of Systems: General: No recent weight changes, no fever, no sleep disturbances Respiratory: No cough, no shortness of air, no recurring pulmonary infections Cardiovascular/peripheral vascular: No chest pain, no palpitations, no edema, no shortness of breath Gastrointestinal: No new onset incontinence, normal bowel movements reported Genitourinary: No new onset incontinence Musculoskeletal: Low back pain, right hip pain, right groin pain, right buttocks pain Psychiatric: [Normal mood/affect] Neurological: [Denies weakness in extremities], [denies balance issues] Objective:: Physical Exam: General: Alert and oriented x3, no acute distress, pleasant and cooperative Lungs: Respirations even and unlabored, symmetrical chest expansion Eyes: PERRL Musculoskeletal: Flexion and extension of lumbar [spine] somewhat guarded secondary to pain, [antalgic gait noted] point tenderness along lower lumbar spine and right SI with positive right Jose R's, Shannon's, Gaenslen's, compression and distraction exam Neurological: Speech clear, no gross sensory deficit Assessment:: Low back pain, right hip pain, right groin pain, right buttock Plan:: Patient is experiencing significant pain in his low back and right hip with radiating symptoms into his buttocks and groin. Patient did have point tenderness along his lower lumbar spine as well as his right SI and a positive right Jose R's, Shannon's, Gaenslen's, compression and distraction exam. I have discussed with the patient that he may benefit from a right SI injection. Risk and benefits were discussed with the patient and he would like to proceed forward with this plan of care. I have also counseled the patient that I will proceed forward and order an MRI without contrast of his lumbar spine. I will also order the patient a compounded cream and send in a 1 month supply of methocarbamol 750 mg 3 times daily as needed. Patient will be scheduled for a right SI injection under fluoroscopy. Patient has been instructed to contact the clinic with any concerns before the next appointment. Dr. Finch has reviewed this note and agrees with this plan of care. This note was dictated using voice recognition software and make contain errors or omissions. [facility] Disclaimer: The information contained in this section may have been updated after the patient was seen, as this information can be updated by other users. Medical History (Updated 04/27/23 @ 19:37 by Minor Funes MD) Depression Anxiety Asthma Surgical History History of hernia repair Family History Family history of cancer Social History Smoking Status: Current every day smoker alcohol intake: current current occupational status: employed and other Travel in the last 8 weeks: None
--- NOTE | 2023-04-28 14:47 | P.CONPHA_ITS ---
Pharmacy Intervention Comments: Discharge medication counseling was provided to the patient on the following new medications on side effects and indication: ketorolac, methocarbamol, and oxycodone/acetaminophen. Patient was instructed to continue taking the citalopram and buspirone. Patient verbalized understanding and had no further qu estions.
--- NOTE | 2023-05-02 16:22 | CARE MANAGER ---
Attempted post-discharge phone call, no answer. Left VM.
== END 2023-04-28 16:03 | disposition home or self-care (01) ==
LOC: ER 17:07 → 2ND 17:20
PROVIDERS: Admitting Provider Internal Medicine Adolescent Medicine; Emergency Provider Emergency Medicine; PCP Nurse Practitioner Family; Visit Provider Internal Medicine Adolescent Medicine
DX: M51.26 Other intervertebral disc displacement, lumbar region; M54.31 Sciatica, right side; E66.01 Morbid (severe) obesity due to excess calories; F32.A Depression, unspecified; Z68.41 Body mass index [BMI] 40.0-44.9, adult; Z79.899 Other long term (current) drug therapy
CPT/HCPCS: 36415; 72128; 72131; 72192; 80053; 83735; 85025; 85610; 97116; 97163; 97166; 97530; 99285; G0378

== ENCOUNTER 2023-05-03 10:08 | Day surgery (SDC) | payer BC, SELFPAY ==
[2023-05-03 10:35] VITALS: BP 116/69; PULSE 65; RESP 16; TEMP 36.4; O2SAT 93; BMI 49.8
[2023-05-03] MEDS: methylPREDNISolone ACETATE 80MG/ML VIAL 80 MG (10:45)
--- NOTE | 2023-05-03 10:45 | EXP.PAIN.PRO ---
Procedure Date: 05/03/23 Time: 10:40 Anesthesiologist:: Tello Hurd CRNA Complications:: None Pre-procedure Diagnosis:: Right sacroiliitis Post-procedure Diagnosis:: Same. Indications for Procedure:: Patient is a pleasant 32-year-old male comes our clinic today for right sacroiliac joint injection. He has extreme point tenderness over the right sacroiliac joint. Patient has difficulty transitioning from sitting to standing. Sitting for any length of time increases pain significantly. He rates his pain 8/10. Procedure Details:: Procedure: Right sacroliliac joint injection under fluoroscopy Informed consent was obtained and the risk and benefits of the procedure were explained to the patient.~ The patient was taken to the procedure room and noninvasive monitors were placed including noninvasive blood pressure cuff and pulse oximeter.~ The patient was placed prone on the procedure table.~ The~ right hip was cleansed using Betadine as a cleansing solution.~ C-arm fluorosocpy was used to view the right SI joint.~ The skin and subcutaneous tissues were anesthetized using Lidocaine 1.5% and a 25-gauge needle.~ After this, a 22-gauge spinal needle was inserted under fluoroscopic guidance into the inferior aspect of the right SI joint.~ Omnipaque dye was injected and a good spread was seen throughout the joint.~ After this, approximately 5 mL of bupivacaine 0.25% and Depo-Medrol 40 mg was incrementally injected into the sacroiliac joint.~ The patient tolerated the procedure well with no complications.~ The patient was observed in the Pain Clinic, then discharged home neurologically intact.~ Plan and Disposition:: Patient was discharged without incident.
[2023-05-03] MEDS: BUPIVACAINE 0.25% 10ML INJ 25 MG IJ (10:46)
[2023-05-03] MEDS: LIDOCAINE 1% 5ML PF VIAL 5 ML (10:46)
[2023-05-03 10:49] VITALS: BP 132/77; PULSE 69; RESP 18; O2SAT 93
[2023-05-03 10:50] VITALS: BP 110/73; PULSE 71; RESP 18; O2SAT 98
[2023-05-03 10:51] VITALS: BP 110/73; PULSE 71; RESP 19; O2SAT 98
== END 2023-05-03 10:49 | disposition home or self-care (01) ==
PROVIDERS: PCP Nurse Practitioner Family; Visit Provider Nurse Anesthetist, Certified Registered
DX: M46.1 Sacroiliitis, not elsewhere classified (principal)
CPT/HCPCS: 27096; G0260; J1040

== ENCOUNTER 2023-05-17 14:56 | Outpatient (CLI) | payer BC, SELFPAY ==
--- NOTE | 2023-05-17 15:02 | MR_ITS ---
FINAL REPORT CLINICAL HISTORY: LOW BACK PAIN right leg pain FINDINGS: Multiplanar MR imaging of the lumbar spine was performed without contrast. On the sagittal T2-weighted images, disc degeneration is seen at multiple levels. The vertebral alignment is normal. There is no evidence of fracture. No bony mass is identified. The conus is seen at approximately the L1 level and has an unremarkable appearance. L1-2: There is no significant canal stenosis or neural foraminal narrowing. L2-3: There is no significant canal stenosis or neural foraminal narrowing. L3-4: There is an annular disc bulge and small central disc protrusion without significant canal stenosis or neural foraminal narrowing. L4-5: Annular disc bulge with right foraminal disc protrusion and right L5 nerve root impingement. There is mild central canal stenosis with AP diameter of the thecal sac measuring 9 mm. There is moderate right and mild left neuroforaminal narrowing. L5-S1: Annular disc bulge with facet arthropathy. There is mild bilateral neuroforaminal narrowing. IMPRESSION: Multilevel degenerative disc disease with right foraminal disc protrusion L4-5, right L5 nerve root impingement, mild central canal stenosis and moderate right neuroforaminal narrowing. Reviewed, Interpreted and Dictated by Danilo Flores III, MD Transcribed by Tennille Bassett Authenticated and [facility]
== END 2023-05-17 23:59 | disposition home or self-care (01) ==
LOC: RAD 14:57
PROVIDERS: PCP Nurse Practitioner Family; Visit Provider Nurse Practitioner Family
DX: M54.50 Low back pain, unspecified (principal)
CPT/HCPCS: 72148; 76376

== ENCOUNTER 2023-09-02 11:52 | Emergency (ER) | payer BC, SELFPAY ==
--- NOTE | 2023-09-02 12:07 | ED_ITS ---
Discharge Plan Disposition Patient Disposition: Home, Self-Care Condition: Good Prescriptions Prescriptions: New azithromycin [Zithromax] 250 mg tablet 250 mg PO UD DOSE PK Qty: 6 0RF Rx Instructions: Take two (2) tablets today, then one (1) tablet days #2 thru #5 prednisone 20 mg tablet 20 mg PO BID 3 Days Qty: 6 0RF zrnpyxtoocqlcot-exshwjifx-EL [Bromfed DM] 2-30-10 mg/5 mL Syrup 5 ml PO Q6H PRN (Reason: Cough) Qty: 240 0RF No Action citalopram 10 mg tablet 10 mg PO DAILY Patient Comments: TAKE 1 TABLET BY MOUTH EVERY DAY IN THE MORNING buspirone 10 mg tablet 10 mg PO BID Patient Comments: TAKE 1 TABLET BY MOUTH TWICE DAILY methocarbamol 750 mg tablet 750 mg PO TID Qty: 90 0RF ketorolac 10 mg Tablet 10 mg PO Q6HP PRN (Reason: moderate pain (scale score 5-6)) 4 Days Qty: 16 0RF oxycodone-acetaminophen 5-325 mg Tablet 1 tab PO Q6HP PRN (Reason: Severe Pain (7-10)) 2 Days Qty: 8 0RF Referrals Follow up/Referrals: Che Rodriguez APRN [Primary Care Provider] - See instructions Activity Restrictions/Add. Instructions Additional Instructions/Restrictions: Drink plenty of fluids. Take tylenol or ibuprofen for pain or fever. Take the medications as directed. Follow up with your regular doctor. GO TO THE ER FOR ANY WORSENING SYMPTOMS Clinical Impressions Clinical Impression: Pharyngitis, Acute viral syndrome Stand Alone Forms Stand Alone Forms: Work/School Release Instructions Patient Instructions: Sore Throat, DI for Pharyngitis/Tonsillopharyngitis -- Adult, DI for Viral Syndrome Print Language Print Language: Ethiopian Discharge ED Provider: Minor Ovalle [facility] General Stated complaint: sore throat congestion ear pain Time Seen by Provider: 09/02/23 12:07 Related Data Home Medications ?Medication ?Instructions ?Recorded ?Confirmed buspirone 10 mg tablet 10 mg PO BID 04/28/23 05/03/23 citalopram 10 mg tablet 10 mg PO DAILY 04/28/23 05/03/23 Previous Rx's ?Medication ?Instructions ?Recorded ketorolac 10 mg tablet 10 mg PO Q6HP PRN moderate pain 04/28/23 (scale score 5-6) 4 days #16 tabs methocarbamol 750 mg tablet 750 mg PO TID #90 tabs 04/28/23 oxycodone-acetaminophen 5 mg-325 1 tab PO Q6HP PRN Severe Pain 04/28/23 mg tablet (7-10) 2 days #8 tabs azithromycin 250 mg tablet 250 mg PO UD DOSE PK #6 tabs 09/02/23 (Zithromax) hivvsnohkjifadr-kmkunpseuiwfibk-BB 5 ml PO Q6H PRN Cough #240 mL 09/02/23 2 mg-30 mg-10 mg/5 mL oral syrup (Bromfed DM) prednisone 20 mg tablet 20 mg PO BID 3 days #6 tabs 09/02/23 Allergies Allergy/AdvReac Type Severity Reaction Status Date / Time Penicillins Allergy Verified 05/03/23 10:36 [facility] Disclaimer: The information contained in this section may have been updated after the patient was seen, as this information can be updated by other users. Medical History (Updated 09/02/23 @ 12:51 by Minor Ovalle APRN) Depression Anxiety Asthma Surgical History History of hernia repair Family History Family history of cancer Social History Smoking Status: Current every day smoker alcohol intake: current current occupational status: employed and other Travel in the last 8 weeks: None ROS Obtained: Yes All systems reviewed & no additional complaints except as documented Constitutional Constitutional: Reports chills and Reports fever(s) Eyes Eyes: Denies eye discharge ENT Ears, Nose, Mouth, and Throat: Reports as per HPI Cardiovascular Cardiovascular: Denies chest pain Respiratory Respiratory: Denies chest congestion and Reports cough Gastrointestinal Gastrointestingal: Reports nausea; Denies abdominal pain, constipation, cramping, diarrhea or vomiting Musculoskeletal Musculoskeletal: Denies arthralgias Integumentary/Breasts Skin/Breast: Denies rash Neurologic Neurologic: Denies paresthesias Physical Exam General General appearance: alert and in no apparent distress Eye Eye exam: Present normal appearance, PERRL and EOMI ENT ENT exam: Present mucous membranes moist and normal external ear exam Expanded ENT Exam External ear exam: Present normal external inspection TM/Canal exam: Bilateral TM: erythema and bulging Nose exam: Absent sinus tenderness Nasal speculum exam: Bilateral: normal Mouth exam: Present normal external inspection; Absent drooling Teeth exam: Present normal inspection Throat exam: Present tonsillar erythema and tonsillomegaly Neck Neck exam: Present normal inspection, full ROM and trachea midline; Absent tenderness, lymphadenopathy or thyromegaly Chest Chest inspection: Present normal inspection and symmetric chest wall rise; Absent tenderness or rash Respiratory Respiratory exam: Present normal lung sounds bilaterally; Absent respiratory distress, wheezes, stridor or accessory muscle use Cardiovascular Cardiovascular exam: Present regular rate, normal rhythm and normal heart sounds Abdominal Exam Abdominal exam: Present soft; Absent distention, tenderness, guarding, rebound or rigidity Extremities Exam Extremities exam: Present normal inspection, full ROM and normal capillary re fill; Absent tenderness or calf tenderness Back Exam Back exam: Present normal inspection and full ROM; Absent tenderness Neurological Exam Neurological exam: Present alert and oriented X3 Psychiatric Psychiatric exam: Present normal affect and normal mood Skin Skin exam: Present warm, dry, intact and normal color Lymphatic Lymphatic Findings: no adenopathy Medical Decision Making Medical Records Medical records reviewed: No I reviewed the patient's medical records. Berny Inquiry Pt receiving controlled substance: No Lab Data Lab results reviewed: Yes I reviewed the patient's lab results.
[2023-09-02 12:14] VITALS: BP 114/75; PULSE 61; RESP 16; TEMP 36.8; O2SAT 95; BMI 38.3
[2023-09-02 12:17] LABS: UTC Strep Screen (Rapid) Negative (Negative)
[2023-09-02 12:56] VITALS: BP 114/75; PULSE 61; RESP 16; TEMP 36.8; O2SAT 95
== END 2023-09-02 12:57 | disposition home or self-care (01) ==
PROVIDERS: Emergency Provider Nurse Practitioner Family; PCP Nurse Practitioner Family
DX: J02.9 Acute pharyngitis, unspecified (principal); B34.9 Viral infection, unspecified
CPT/HCPCS: 87880; 99212; 99214; G0463